=== PATIENT | female | born 1985 | race Asian ===

== ENCOUNTER 2019-06-13 12:55 | Emergency (ER) | payer MEDICAID ==
[~2019-06-13] VITALS: Ht 154.9 cm; Wt 65.5 kg
[~2019-06-13 12:55] MED LIST: DESO1TAB; HYDR1TAB PO; NAPR-56 PO; ONDA4TAB59 PO; PANT20TA2 PO; PREN1COM PO
[2019-06-13 13:09] VITALS: BP 126/93
[2019-06-13] MEDS ORDERED: PENI500T2 PO (13:13)
== END 2019-06-13 13:18 | disposition home or self-care (01) ==
LOC: ER 12:55
DX: J02.9 Acute pharyngitis, unspecified (principal); F17.200 Nicotine dependence, unspecified, uncomplicated; Z91.030 Bee allergy status; Z88.8 Allergy status to other drugs, medicaments and biological substances; Z88.1 Allergy status to other antibiotic agents; Z79.899 Other long term (current) drug therapy
CPT/HCPCS: 99283

== ENCOUNTER 2019-06-21 01:17 | Emergency (ER) | payer MEDICAID ==
[~2019-06-21] VITALS: Ht 154.9 cm; Wt 64.1 kg
[~2019-06-21 01:17] MED LIST changes: +PENI500T2 PO
[2019-06-21 01:27] VITALS: BP 140/94
[2019-06-21] MEDS ORDERED: CefTRIAXone 1000mg IM Kit (w/lidocaine diluent) IM ONE (01:40)
[2019-06-21] MEDS ORDERED: azithromycin 250mg tablet PO ONE (01:40)
[2019-06-21 01:57] LABS: URINE HCG NEGATIVE (NEG)
[2019-06-21 02:00] LABS: CLARITY,URINE CLEAR (Clear); COLOR,URINE YELLOW (Yellow); GLUCOSE, URINE NEGATIVE (Neg); KETONES,URINE NEGATIVE (Neg); LEUKOCYTE ESTERASE ,URINE NEGATIVE (Neg); NITRITES, URINE NEGATIVE (Neg); OCCULT BLOOD,URINE LARGE (Neg); PH,URINE 5.5 (4.8-8.0); PROTEIN,URINE NEGATIVE (Neg); UROBILINOGEN,URINE 0.2 E.U/dL (0.2-1.0)
[2019-06-21] MEDS ORDERED: ACYC400T PO (02:01)
[2019-06-21 02:04] LABS: UA COLLECTION TYPE VOIDED
[2019-06-21 02:05] LABS: BACTERIA,URINE NONE SEEN /HPF (Neg); RBC,URINE 0-2 /HPF (0-2); SQUAMOUS EPITHELIAL CELL,UR FEW /LPF (FEW); WBC,URINE NONE SEEN /HPF (0-4)
== END 2019-06-21 02:15 | disposition home or self-care (01) ==
LOC: ER 01:18
DX: B00.9 Herpesviral infection, unspecified (principal); A64 Unspecified sexually transmitted disease; F10.99 Alcohol use, unspecified with unspecified alcohol-induced disorder; Z91.030 Bee allergy status; Z88.8 Allergy status to other drugs, medicaments and biological substances; Z88.2 Allergy status to sulfonamides; Z79.899 Other long term (current) drug therapy; Y90.9 Presence of alcohol in blood, level not specified
CPT/HCPCS: 36415; 81001; 81025; 87491; 87591; 96372; 99283; J0696

== ENCOUNTER 2020-02-03 06:34 | Emergency (ER) | payer MEDICAID, OTHER ==
[~2020-02-03] VITALS: Ht 154.9 cm; Wt 65.9 kg
[~2020-02-03 06:34] MED LIST changes: -PENI500T2 PO
[2020-02-03 06:40] VITALS: BP 126/65
[2020-02-03] MEDS ORDERED: ketorolac trometh inj. 60 MG/2 ML VIAL IM ONE (06:55)
--- NOTE | 2020-02-03 07:01 | NUR ---
SAW PATIENT AND ORDERED TORDOL IM, MED ADMINISTERED WILL RE-EVALUATE PAIN AFTER INJECTION, PATINET TOLERATED WELL
--- NOTE | 2020-02-03 07:26 | NUR ---
reassesed patient pain still at 8/10, provider made aware and will reassess patient, patient was sittingon edge of bed patient encouraged to laydown
[2020-02-03] MEDS ORDERED: DICL50TA8 PO (07:40)
[2020-02-03] MEDS ORDERED: CYCL-1 PO (07:40)
--- NOTE | 2020-02-03 07:43 | NUR ---
patients pain is 2-3/10 after laying down for 20 min, provider assessed patient for weakness and this has resolved, patient ready for discharge
[2020-02-03] MEDS ORDERED: HYDR-4383 PO (10:35)
== END 2020-02-03 07:54 | disposition home or self-care (01) ==
LOC: ER 06:35
DX: S39.012A Strain of muscle, fascia and tendon of lower back, initial encounter (principal); F17.210 Nicotine dependence, cigarettes, uncomplicated; Z91.030 Bee allergy status; Z88.2 Allergy status to sulfonamides; Z88.8 Allergy status to other drugs, medicaments and biological substances; Z79.899 Other long term (current) drug therapy; X58.XXXA Exposure to other specified factors, initial encounter; Y93.F1 Activity, caregiving, bathing; Y92.89 Other specified places as the place of occurrence of the external cause; Y99.8 Other external cause status
CPT/HCPCS: 96372; 99283; J1885

== ENCOUNTER 2020-02-03 08:42 | Emergency (ER) | payer OTHER ==
[~2020-02-03] VITALS: Ht 154.9 cm; Wt 65.9 kg
[~2020-02-03 08:42] MED LIST changes: +CYCL-1 PO; +DICL50TA8 PO
[2020-02-03] MEDS ORDERED: morphine 4 MG/ML inj SYRINge IM ONE (09:00)
--- NOTE | 2020-02-03 09:15 | NUR ---
MRI SCREENING FORM FILLED OUT AND FAXED, MORPHINE IM GIVEN
[2020-02-03] MEDS ORDERED: ibuprofen tablet 400 MG TABLET PO ONE (09:20)
--- NOTE | 2020-02-03 10:08 | NUR ---
BACK FROM MRI, PAIN IS 1/10
[2020-02-03] MEDS ORDERED: HYDR-4383 PO (10:35)
--- NOTE | 2020-02-03 10:40 | NUR ---
provider went over MRI results, will write rx then discharge patient, pain is /10
[2020-02-03 10:53] VITALS: BP 130/92
== END 2020-02-03 10:56 | disposition home or self-care (01) ==
LOC: ER 08:42
DX: S39.012A Strain of muscle, fascia and tendon of lower back, initial encounter (principal); Z91.030 Bee allergy status; Z88.8 Allergy status to other drugs, medicaments and biological substances; Z79.899 Other long term (current) drug therapy; W18.2XXA Fall in (into) shower or empty bathtub, initial encounter; Y93.89 Activity, other specified; Y92.89 Other specified places as the place of occurrence of the external cause; Y99.8 Other external cause status
CPT/HCPCS: 72148; 96372; 99284; J2270

== ENCOUNTER 2021-02-26 20:42 | Emergency (ER) | payer MEDICAID, OTHER ==
[~2021-02-26] VITALS: Ht 152.4 cm; Wt 68.6 kg
[~2021-02-26 20:42] MED LIST changes: +HYDR-4383 PO
[2021-02-26 20:49] VITALS: BP 135/91
== END 2021-02-26 21:06 | disposition home or self-care (01) ==
LOC: ER 20:43
DX: J02.8 Acute pharyngitis due to other specified organisms (principal); B97.89 Other viral agents as the cause of diseases classified elsewhere; Z72.89 Other problems related to lifestyle; Z91.030 Bee allergy status; Z88.8 Allergy status to other drugs, medicaments and biological substances; Z88.2 Allergy status to sulfonamides; Z79.899 Other long term (current) drug therapy
CPT/HCPCS: 99281

== ENCOUNTER 2023-05-28 15:02 | Emergency (ER) | payer MEDICAID ==
[~2023-05-28] VITALS: Ht 157.5 cm; Wt 64.5 kg
[2023-05-28 15:22] VITALS: BP 141/78; PULSE 74; RESP 18; TEMP 97.7; O2SAT 99
[2023-05-28 16:24] LABS: URINE HCG NEGATIVE (NEG)
[2023-05-28 16:28] LABS: COLOR,URINE STRAW (Yellow); GLUCOSE, URINE NEGATIVE (Neg); KETONES,URINE NEGATIVE (Neg); LEUKOCYTE ESTERASE ,URINE SMALL (Neg); NITRITES, URINE NEGATIVE (Neg); OCCULT BLOOD,URINE MODERATE (Neg); PROTEIN,URINE NEGATIVE (Neg); UROBILINOGEN,URINE 0.2 E.U/dL (0.2-1.0)
[2023-05-28 16:32] LABS: CLARITY,URINE SLIGHTLY CLOUDY (Clear); UA COLLECTION TYPE VOIDED
[2023-05-28 16:37] LABS: BACTERIA,URINE FEW /HPF (Neg); SQUAMOUS EPITHELIAL CELL,UR FEW /LPF (FEW)
[2023-05-28 16:38] LABS: WBC CLUMPS,URINE FEW /HPF (NEGATIVE)
[2023-05-28] MEDS ORDERED: cephalexin 500mg capsule PO ONE (17:05)
[2023-05-28] MEDS ORDERED: CEPH-585 PO (17:07)
== END 2023-05-28 17:34 | disposition home or self-care (01) ==
LOC: ER 15:02
DX: N39.0 Urinary tract infection, site not specified (principal); Z91.030 Bee allergy status; Z88.8 Allergy status to other drugs, medicaments and biological substances; Z88.2 Allergy status to sulfonamides; Z79.1 Long term (current) use of non-steroidal anti-inflammatories (NSAID); Z79.899 Other long term (current) drug therapy
CPT/HCPCS: 81001; 81025; 87077; 87088; 87186; 99283

== ENCOUNTER 2023-08-16 12:07 | Emergency (ER) | payer OTHER, MEDICAID ==
[~2023-08-16] VITALS: Ht 157.5 cm; Wt 57.2 kg
[~2023-08-16 12:07] MED LIST changes: +CEPH-585 PO
[2023-08-16] MEDS ORDERED: NAPR-56 PO (13:56)
[2023-08-16 13:57] LABS: BILIRUBIN,URINE NEGATIVE (Neg); CLARITY,URINE SLIGHTLY CLOUDY (Clear); COLOR,URINE YELLOW (Yellow); GLUCOSE, URINE NEGATIVE (Neg); KETONES,URINE NEGATIVE (Neg); LEUKOCYTE ESTERASE ,URINE NEGATIVE (Neg); NITRITES, URINE NEGATIVE (Neg); OCCULT BLOOD,URINE LARGE (Neg); PH,URINE 6.5 (4.8-8.0); PROTEIN,URINE NEGATIVE (Neg); UROBILINOGEN,URINE 0.2 E.U/dL (0.2-1.0)
[2023-08-16 14:00] LABS: UA COLLECTION TYPE CLN CATCH MIDSTREAM
[2023-08-16 14:07] VITALS: BP 122/84; PULSE 71; RESP 16; TEMP 98.1; O2SAT 95
[2023-08-16 14:12] LABS: RBC,URINE 20-50 /HPF (0-2); WBC,URINE 0-4 /HPF (0-4)
[2023-08-16 14:13] LABS: BACTERIA,URINE FEW /HPF (Neg); MUCUS STRANDS FEW /LPF (Neg); SQUAMOUS EPITHELIAL CELL,UR MANY /LPF (FEW)
== END 2023-08-16 14:08 | disposition home or self-care (01) ==
LOC: ER 12:08
DX: S70.01XA Contusion of right hip, initial encounter (principal); K59.00 Constipation, unspecified; K80.20 Calculus of gallbladder without cholecystitis without obstruction; Z91.030 Bee allergy status; Z88.2 Allergy status to sulfonamides; Z88.8 Allergy status to other drugs, medicaments and biological substances; Z79.2 Long term (current) use of antibiotics; Z79.899 Other long term (current) drug therapy; V09.9XXA Pedestrian injured in unspecified transport accident, initial encounter; Y93.89 Activity, other specified; Y92.89 Other specified places as the place of occurrence of the external cause; Y99.8 Other external cause status
CPT/HCPCS: 73502; 74176; 81001; 99284

== ENCOUNTER 2023-08-18 14:16 | Emergency (ER) | payer OTHER, MEDICAID ==
[~2023-08-18] VITALS: Ht 157.5 cm; Wt 64.0 kg
[2023-08-18 15:37] VITALS: BP 126/81; O2SAT 96
[2023-08-18] MEDS ORDERED: ketorolac tromethamine 15mg/ml inj. IM ONE (16:45)
[2023-08-18] MEDS ORDERED: orphenadrine citrate 60mg/2ml inj. IM ONE (16:45)
[2023-08-18] MEDS ORDERED: PRED20TA PO (17:27)
[2023-08-18] MEDS ORDERED: CYCL-1 PO (17:27)
[2023-08-18 17:37] VITALS: PULSE 63; RESP 16; TEMP 97.4
== END 2023-08-18 17:46 | disposition home or self-care (01) ==
LOC: ER 14:17
DX: S16.1XXA Strain of muscle, fascia and tendon at neck level, initial encounter (principal); M54.50 Low back pain, unspecified; M25.551 Pain in right hip; Z72.89 Other problems related to lifestyle; Z87.440 Personal history of urinary (tract) infections; Z79.899 Other long term (current) drug therapy; Z88.8 Allergy status to other drugs, medicaments and biological substances; Z91.030 Bee allergy status; V89.2XXA Person injured in unspecified motor-vehicle accident, traffic, initial encounter; Y93.89 Activity, other specified; Y92.89 Other specified places as the place of occurrence of the external cause; Y99.8 Other external cause status
CPT/HCPCS: 71045; 72040; 96372; 99284; J1885; J2360

== ENCOUNTER 2023-09-06 05:08 | Emergency (ER) | payer OTHER, MEDICAID ==
[~2023-09-06] VITALS: Ht 157.5 cm; Wt 67.0 kg
[2023-09-06 05:10] VITALS: BP 139/80; PULSE 82; TEMP 98; O2SAT 100
[2023-09-06] MEDS ORDERED: diazepam 5mg tablet PO ONE (06:35)
[2023-09-06] MEDS ORDERED: ketorolac trometh. 30mg/ml inj. IM ONE (06:35)
[2023-09-06 06:50] VITALS: RESP 17
== END 2023-09-06 07:19 | disposition home or self-care (01) ==
LOC: ER 05:08
DX: M54.59 Other low back pain (principal); F41.9 Anxiety disorder, unspecified; Z87.448 Personal history of other diseases of urinary system; Z91.030 Bee allergy status; Z88.8 Allergy status to other drugs, medicaments and biological substances; Z79.899 Other long term (current) drug therapy
CPT/HCPCS: 96372; 99283; J1885

== ENCOUNTER 2023-10-12 21:50 | Inpatient (IN) | payer MEDICAID ==
[~2023-10-12] VITALS: Ht 154.9 cm; Wt 68.0 kg
[2023-10-12 22:08] LABS: HEMOGLOBIN 12.3 g/dl (12.0-16.0); MEAN PLATELET VOLUME 7.8 FL (7.4-10.4)
[2023-10-12 22:09] LABS: HEMATOCRIT 36.5 % (35.0-45.0); MEAN CORPUSCULAR HEMOGLOBIN 23.7 PG (27.0-31.0); MEAN CORPUSCULAR HGB CONC 33.8 g/dL (33.0-36.5); MEAN CORPUSCULAR VOLUME 70.2 FL (78-98); PLATELET COUNT 307 X10'3 (140-440); RED CELL DISTRIBUTION WIDTH 15.5 % (11.5-14.5); WHITE BLOOD COUNT 7.1 X10'3 (4.5-11.0)
[2023-10-12 22:27] LABS: ALANINE AMINOTRANSFERASE 160 U/L (12-78); ALBUMIN 3.7 G/DL (3.4-5.0); ALKALINE PHOSPHATASE 238 IU/L (46-116); ANION GAP 9 (8-16); BILIRUBIN,TOTAL 7.1 MG/DL (0.1-1.0); BLOOD UREA NITROGEN 5 MG/DL (7-18); BUN/CREATININE RATIO 7.4 (10.0-20.0); CALCIUM 8.9 MG/DL (8.5-10.1); CHLORIDE 100 MMOL/L (99-107); CREATININE 0.68 MG/DL (0.40-0.90); GLUCOSE 106 MG/DL (70-104); POTASSIUM 3.4 MMOL/L (3.5-5.1); SODIUM 135 MMOL/L (135-145); eCRCL 85 ML/MIN; eGFR > 90 ML/MIN
[2023-10-12 22:31] LABS: PRO BRAIN NATRIURETIC PEPTIDE 64 PG/ML (0-125)
[2023-10-12 22:36] LABS: LIPASE 32 U/L (16-77)
[2023-10-12 22:52] LABS: PLATELET ESTIMATE NORMAL; TOTAL CELLS COUNTED 100
[2023-10-12 22:53] LABS: ELLIPTOCYTES FEW; MICROCYTOSIS 1+; TARGET CELLS 1+
[2023-10-12 22:54] LABS: ACANTHOCYTES FEW; ANISOCYTOSIS 1+; ASPARTATE AMINO TRANSFERASE 213 U/L (10-37); POLYCHROMASIA FEW
[2023-10-12 22:55] LABS: SCHISTOCYTES FEW
[2023-10-12 22:57] LABS: TOTAL PROTEIN 7.4 G/DL (6.4-8.2)
[2023-10-13] MEDS ORDERED: morphine 4 MG/ML inj SYRINge IV ONE (00:15)
[2023-10-13] MEDS ORDERED: ondansetron/PF 4mg/2ml inj IV ONE (00:15)
[2023-10-13] MEDS ORDERED: normal saline 1000ml 1,000 ML IV ONE ×2 (00:15→03:35)
[2023-10-13] MEDS ORDERED: iohexol 300mg/ml 100ml inj. ONE (00:48)
[2023-10-13 01:41] LABS: BILIRUBIN,URINE MODERATE (Neg); CLARITY,URINE CLEAR (Clear); GLUCOSE, URINE NEGATIVE (Neg); KETONES,URINE TRACE mg/dl (Neg); LEUKOCYTE ESTERASE ,URINE NEGATIVE (Neg); NITRITES, URINE NEGATIVE (Neg); OCCULT BLOOD,URINE NEGATIVE (Neg); PROTEIN,URINE NEGATIVE (Neg)
[2023-10-13 01:43] LABS: URINE HCG NEGATIVE (NEG)
[2023-10-13 01:46] LABS: COLOR,URINE DARK YELLOW (Yellow); UA COLLECTION TYPE CLN CATCH MIDSTREAM
[2023-10-13] MEDS ORDERED: piperacillin/tazo 3.375gm/50ml 50 ML IV SCH (03:35)
[2023-10-13] MEDS ORDERED: ondansetron 4mg rapidly disintigrating tab PO PRN (04:15)
[2023-10-13] MEDS ORDERED: potassium Cl 20 mEq SR tablet PO PRN ×2 (04:15)
[2023-10-13] MEDS ORDERED: magnesium hydroxide 30ml (MOM) UD suspension PO PRN (04:15)
[2023-10-13] MEDS ORDERED: potassium Cl 40MEQ/1/2NS 520ml 520 ML IV PRN (04:15)
[2023-10-13] MEDS: potassium cl 20mEq in 1/2 NS 1,000 ML IV SCH ×2 (04:15→14:40)
[2023-10-13] MEDS ORDERED: bisacodyl 10mg suppository rectal RC PRN (04:15)
[2023-10-13] MEDS ORDERED: HYDROcodone/acetaminophen 5mg/325mg tablet PO PRN (04:15)
[2023-10-13] MEDS ORDERED: ondansetron/PF 4mg/2ml inj IV PRN (04:15)
[2023-10-13] MEDS ORDERED: mag hydrox/Alum hydrox/simeth 30ml oral suspension PO PRN (04:15)
[2023-10-13] MEDS ORDERED: metoclopramide 5 mg/ml inj IV PRN (04:15)
[2023-10-13] MEDS ORDERED: diphenhydrAMINE 50 mg/ml inj IV PRN (04:15)
[2023-10-13] MEDS ORDERED: morphine 2 MG/ML inj. syringe IV PRN (04:15)
[2023-10-13] MEDS ORDERED: acetaminophen 325mg tablet PO PRN ×2 (04:15)
[2023-10-13 04:46] LABS: HEMOGLOBIN A1C 4.4 % (4.5-6.2)
[2023-10-13 04:49] LABS: CREATINE KINASE 112 U/L (26-192); LACTATE DEHYDROGENASE 241 U/L (81-234); MAGNESIUM 2.1 MG/DL (1.5-2.4)
[2023-10-13 04:57] LABS: URINE AMPHETAMINE SCREEN NEGATIVE (Neg); URINE BARBITUATE SCREEN NEGATIVE (Neg); URINE BENZODIAZEPINES SCREEN POSITIVE (Neg); URINE CANNABINOID SCREEN NEGATIVE (Neg); URINE COCAINE SCREEN POSITIVE (Neg); URINE METHADONE SCREEN NEGATIVE (Neg); URINE OPIATE SCREEN POSITIVE (Neg); URINE PHENCYCLIDINE SCREEN NEGATIVE (Neg)
[2023-10-13 05:12] LABS: ETHANOL < 10 MG/DL (<10); PHOSPHORUS 3.1 MG/DL (2.3-4.5); THYROID STIMULATING HORMONE 1.51 ulU/ml (0.34-4.50)
[2023-10-13 05:14] LABS: ACETAMINOPHEN < 2.0 UG/ML (10-30)
[2023-10-13 07:45] LABS: APTT 28 SECONDS (22-32); PROTHROMBIN TIME 9.6 SECONDS (9.0-12.0)
[2023-10-13] MEDS: morphine 2 MG/ML inj. syringe IV PRN ×4 (07:45→21:37)
[2023-10-13] MEDS: docusate sod 100mg capsule PO SCH ×2 (07:45→19:18)
[2023-10-13] MEDS: pantoprazole 40MG/NS 100ML BAG 100 ML IV SCH (07:50)
[2023-10-13 08:04] LABS: INR 0.9 INR
[2023-10-13 08:30] VITALS: RESP 16; O2SAT 98
[2023-10-13 08:39] VITALS: BP 109/41; PULSE 55; RESP 16; TEMP 98.2; O2SAT 99
[2023-10-13] MEDS ORDERED: DIAZ10TA4 PO (08:58)
[2023-10-13 10:00] VITALS: BP 104/54; PULSE 57; RESP 15; TEMP 97.3; O2SAT 97
[2023-10-13] MEDS: piperacillin/tazo 3.375gm/50ml 50 ML IV SCH ×2 (14:41→21:37)
[2023-10-13 18:00] VITALS: BP 106/58; PULSE 55; RESP 15; TEMP 97; O2SAT 99
[2023-10-13 20:00] VITALS: RESP 15; O2SAT 99
[2023-10-13 20:13] LABS: ALANINE AMINOTRANSFERASE 122 U/L (12-78); ALBUMIN 3.3 G/DL (3.4-5.0); ALKALINE PHOSPHATASE 218 IU/L (46-116); ANION GAP 8 (8-16); ASPARTATE AMINO TRANSFERASE 99 U/L (10-37); BILIRUBIN,TOTAL 4.6 MG/DL (0.1-1.0); BLOOD UREA NITROGEN 3 MG/DL (7-18); BUN/CREATININE RATIO 4.1 (10.0-20.0); CALCIUM 8.8 MG/DL (8.5-10.1); CHLORIDE 103 MMOL/L (99-107); CREATININE 0.73 MG/DL (0.40-0.90); GLUCOSE 105 MG/DL (70-104); POTASSIUM 3.4 MMOL/L (3.5-5.1); SODIUM 137 MMOL/L (135-145); TOTAL CARBON DIOXIDE 26.2 MMOL/L (24-32); eCRCL 79 ML/MIN; eGFR 89 ML/MIN
[2023-10-13 20:23] LABS: ALBUMIN/GLOBULIN RATIO 0.9 (1.1-1.5); TOTAL PROTEIN 7.1 G/DL (6.4-8.2)
[2023-10-13] MEDS ORDERED: temazepam 15mg capsule PO PRN (21:00)
[2023-10-13 22:00] VITALS: BP 91/48; PULSE 63; RESP 16; TEMP 97.6; O2SAT 98
[2023-10-14] VITALS (13 sets, daily range): BP systolic 95–112; BP diastolic 48–72; PULSE 50–63; RESP 12–18; TEMP 97.2–98; O2SAT 97–99
[2023-10-14] MEDS: potassium cl 20mEq in 1/2 NS 1,000 ML IV SCH ×3 (00:01→20:35)
[2023-10-14] MEDS: morphine 2 MG/ML inj. syringe IV PRN ×3 (02:25→12:28)
[2023-10-14] MEDS: diphenhydrAMINE 25mg capsule PO PRN ×3 (02:25→22:04)
[2023-10-14] MEDS: piperacillin/tazo 3.375gm/50ml 50 ML IV SCH ×3 (05:29→22:05)
[2023-10-14 06:11] LABS: HEMOGLOBIN 11.5 g/dl (12.0-16.0); WHITE BLOOD COUNT 3.5 X10'3 (4.5-11.0)
[2023-10-14 06:13] LABS: HEMATOCRIT 34.3 % (35.0-45.0); MEAN CORPUSCULAR HEMOGLOBIN 23.5 PG (27.0-31.0); MEAN CORPUSCULAR HGB CONC 33.5 g/dL (33.0-36.5); MEAN CORPUSCULAR VOLUME 70.2 FL (78-98); MEAN PLATELET VOLUME 7.8 FL (7.4-10.4); PLATELET COUNT 242 X10'3 (140-440); RED BLOOD COUNT 4.88 X10'6 (4.20-5.60); RED CELL DISTRIBUTION WIDTH 15.4 % (11.5-14.5)
[2023-10-14 06:28] LABS: ALANINE AMINOTRANSFERASE 101 U/L (12-78); ALBUMIN/GLOBULIN RATIO 0.8 (1.1-1.5); ALKALINE PHOSPHATASE 205 IU/L (46-116); ANION GAP 6 (8-16); ASPARTATE AMINO TRANSFERASE 75 U/L (10-37); BILIRUBIN,TOTAL 2.1 MG/DL (0.1-1.0); BLOOD UREA NITROGEN 1 MG/DL (7-18); BUN/CREATININE RATIO 1.4 (10.0-20.0); CALCIUM 8.6 MG/DL (8.5-10.1); CHLORIDE 104 MMOL/L (99-107); CHOL/HDL RATIO 2.9 (0.00-4.99); CHOLESTEROL 179 MG/DL (0-200); CREATININE 0.69 MG/DL (0.40-0.90); GLUCOSE 89 MG/DL (70-104); HDL CHOLESTEROL 62 MG/DL (35-60); LDL CHOLESTEROL 81 MG/DL (50-100); POTASSIUM 4.2 MMOL/L (3.5-5.1); SODIUM 136 MMOL/L (135-145); TOTAL CARBON DIOXIDE 25.6 MMOL/L (24-32); TOTAL PROTEIN 6.6 G/DL (6.4-8.2); TRIGLYCERIDES 121 MG/DL (20-135); eCRCL 83 ML/MIN; eGFR > 90 ML/MIN
[2023-10-14 06:44] LABS: PLATELET ESTIMATE NORMAL; TOTAL CELLS COUNTED 100
[2023-10-14 06:45] LABS: ELLIPTOCYTES FEW; HYPOCHROMASIA 1+; MICROCYTOSIS 1+; TARGET CELLS 1+; TEAR DROP CELLS FEW
[2023-10-14] MEDS: pantoprazole 40MG/NS 100ML BAG 100 ML IV SCH (07:40)
[2023-10-14] MEDS: docusate sod 100mg capsule PO SCH ×2 (07:41→20:35)
[2023-10-14] MEDS ORDERED: LIDOcaine Viscous 15ml cup ONE (14:41)
[2023-10-14] MEDS ORDERED: glucagon, human recombinant 1mg kit ONE (14:41)
[2023-10-14] MEDS ORDERED: iohexol 300 MG/1 ML 50ml polymer ONE (14:41)
[2023-10-14] MEDS ORDERED: MIDAZolam 1 MG/ML 5ML VIAL ONE (14:41)
[2023-10-14] MEDS ORDERED: fentaNYL/PF 50MCG/1 ML 2ML syringe ONE (14:41)
[2023-10-14] MEDS ORDERED: iohexol 300mg/ml 100ml inj. ONE (14:42)
[2023-10-14] MEDS ORDERED: diphenhydrAMINE 50 mg/ml inj ONE (14:50)
[2023-10-14] MEDS: HYDROmorphone inj. 0.5 MG/0.5 ML DISP.SYRIN IV PRN (20:35)
[2023-10-15] VITALS (18 sets, daily range): BP systolic 114–145; BP diastolic 51–84; PULSE 52–71; RESP 12–20; TEMP 97.1–98.1; O2SAT 92–100
[2023-10-15] MEDS: potassium cl 20mEq in 1/2 NS 1,000 ML IV SCH ×2 (05:18→21:56)
[2023-10-15] MEDS: piperacillin/tazo 3.375gm/50ml 50 ML IV SCH ×3 (05:27→21:57)
[2023-10-15 07:32] LABS: RED CELL DISTRIBUTION WIDTH 15.8 % (11.5-14.5); WHITE BLOOD COUNT 4.4 X10'3 (4.5-11.0)
[2023-10-15 07:34] LABS: HEMATOCRIT 34.6 % (35.0-45.0); HEMOGLOBIN 11.6 g/dl (12.0-16.0); MEAN CORPUSCULAR HEMOGLOBIN 23.6 PG (27.0-31.0); MEAN CORPUSCULAR HGB CONC 33.6 g/dL (33.0-36.5); MEAN CORPUSCULAR VOLUME 70.2 FL (78-98); MEAN PLATELET VOLUME 8.1 FL (7.4-10.4); PLATELET COUNT 251 X10'3 (140-440); RED BLOOD COUNT 4.93 X10'6 (4.20-5.60)
[2023-10-15 07:40] LABS: ALANINE AMINOTRANSFERASE 87 U/L (12-78); ALBUMIN 3.2 G/DL (3.4-5.0); ALBUMIN/GLOBULIN RATIO 0.8 (1.1-1.5); ALKALINE PHOSPHATASE 207 IU/L (46-116); ANION GAP 8 (8-16); ASPARTATE AMINO TRANSFERASE 58 U/L (10-37); BILIRUBIN,TOTAL 1.8 MG/DL (0.1-1.0); BLOOD UREA NITROGEN 2 MG/DL (7-18); BUN/CREATININE RATIO 2.9 (10.0-20.0); CALCIUM 8.8 MG/DL (8.5-10.1); CHLORIDE 104 MMOL/L (99-107); CREATININE 0.68 MG/DL (0.40-0.90); GLUCOSE 95 MG/DL (70-104); POTASSIUM 3.9 MMOL/L (3.5-5.1); SODIUM 138 MMOL/L (135-145); TOTAL CARBON DIOXIDE 26.3 MMOL/L (24-32); eCRCL 85 ML/MIN; eGFR > 90 ML/MIN
[2023-10-15] MEDS: pantoprazole 40MG/NS 100ML BAG 100 ML IV SCH (07:55)
[2023-10-15] MEDS: docusate sod 100mg capsule PO SCH ×2 (07:56→21:56)
[2023-10-15 08:05] LABS: TOTAL CELLS COUNTED 100
[2023-10-15 08:06] LABS: HYPOCHROMASIA 1+; MICROCYTOSIS 1+; PLATELET ESTIMATE NORMAL; TARGET CELLS 2+
[2023-10-15 08:07] LABS: ELLIPTOCYTES FEW; TEAR DROP CELLS FEW
[2023-10-15] MEDS: diphenhydrAMINE 25mg capsule PO PRN ×2 (08:07→21:57)
[2023-10-15] MEDS: HYDROmorphone inj. 0.5 MG/0.5 ML DISP.SYRIN IV PRN (12:25)
[2023-10-15] MEDS ORDERED: labetalol 20mg/4ml (5mg/ml) syringe IV PRN (14:30)
[2023-10-15] MEDS ORDERED: BUPIVAcaine 2.5mg/ml inj 50ml vial (contains preservative) ONE (14:30)
[2023-10-15] MEDS ORDERED: LIDOcaine 1% (10mg/ml)w/preservative inj. 20ml MDV ONE (14:30)
[2023-10-15] MEDS ORDERED: meperidine/PF 25mg/ml syringe IV PRN ×2 (14:30)
[2023-10-15] MEDS ORDERED: morphine 4 MG/ML inj SYRINge IV PRN (14:30)
[2023-10-15] MEDS ORDERED: morphine 2 MG/ML inj. syringe IV PRN (14:30)
[2023-10-15] MEDS ORDERED: enalaprilat dihydrate 2.5mg/2ml vial IV PRN (14:30)
[2023-10-15] MEDS ORDERED: ondansetron/PF 4mg/2ml inj IV PRN (14:30)
[2023-10-15] MEDS ORDERED: ringers solution, lacted 1,000 ML IV SCH (14:30)
[2023-10-15] MEDS ORDERED: INDOCYANINE GREEN 25 MG/10 ML VIAL IV ONE ×3 (16:48→16:52)
[2023-10-15] MEDS ORDERED: LIDOcaine 1%/PF 5ML 10 MG/ML VIAL ONE (17:32)
[2023-10-15] MEDS ORDERED: propofol inj 20 ML IV ONE (17:32)
[2023-10-15] MEDS ORDERED: midazolam 1 mg/ML 2ml injection ONE (17:33)
[2023-10-15] MEDS ORDERED: fentaNYL/PF 50MCG/1 ML 2ML syringe ONE (17:33)
[2023-10-15] MEDS ORDERED: LIDOcaine 1% 30ml preserv. free vial ONE (17:53)
[2023-10-15] MEDS ORDERED: rocuronium 10mg/ml inj IV ONE (18:05)
[2023-10-15] MEDS ORDERED: sevoflurane 250ml liquid IH ONE (18:05)
[2023-10-15] MEDS ORDERED: neostigmine methylsulfate 1 MG/ML 10ml vial ONE (18:05)
[2023-10-15] MEDS ORDERED: ondansetron/PF 4mg/2ml inj ONE (18:05)
[2023-10-15] MEDS ORDERED: dexamethasone sod phosphate 10mg/ml inj ONE (18:05)
[2023-10-15] MEDS ORDERED: glycopyrrolate 0.2mg/ml inj ONE (18:05)
[2023-10-15] MEDS ORDERED: LIDOcaine 1% 30ml preserv. free vial IJ ONE (18:20)
[2023-10-15] MEDS ORDERED: BUPIVAcaine/PF 2.5 mg/ml (0.25%) 30ml vial IJ ONE (18:20)
[2023-10-15] MEDS ORDERED: ceFAZolin 1000mg inj ONE ×2 (18:35→18:36)
[2023-10-15] MEDS ORDERED: meperidine/PF 25mg/ml syringe ONE (18:37)
[2023-10-15] MEDS ORDERED: naloxone 0.4 mg/ml inj IV PRN (19:35)
[2023-10-15] MEDS ORDERED: HYDROcodone/acetaminophen 5mg/325mg tablet PO PRN (19:35)
[2023-10-15] MEDS ORDERED: HYDROcodone/acetaminophen 10/325mg tab PO PRN (19:35)
[2023-10-15] MEDS ORDERED: acetaminophen 1,000mg/100ml IV 100 ML IV ONE (19:40)
[2023-10-15] MEDS: meperidine/PF 25mg/ml syringe IV PRN ×3 (20:02→20:25)
[2023-10-16 00:20] VITALS: BP 107/59; PULSE 58; O2SAT 97
[2023-10-16] MEDS: HYDROmorphone inj. 0.5 MG/0.5 ML DISP.SYRIN IV PRN ×2 (00:24→10:25)
[2023-10-16 02:00] VITALS: BP 100/60; PULSE 55; RESP 16; TEMP 97.3; O2SAT 96
[2023-10-16] MEDS: potassium cl 20mEq in 1/2 NS 1,000 ML IV SCH ×2 (02:15→10:31)
[2023-10-16] MEDS: piperacillin/tazo 3.375gm/50ml 50 ML IV SCH (05:37)
[2023-10-16] MEDS: HYDROcodone/acetaminophen 10/325mg tab PO PRN ×2 (05:45→16:21)
[2023-10-16 06:00] VITALS: BP 101/58; PULSE 61; RESP 16; TEMP 97.3; O2SAT 100
[2023-10-16 07:24] LABS: MEAN PLATELET VOLUME 8.1 FL (7.4-10.4)
[2023-10-16 07:27] LABS: HEMATOCRIT 32.8 % (35.0-45.0); MEAN CORPUSCULAR HEMOGLOBIN 23.7 PG (27.0-31.0); MEAN CORPUSCULAR HGB CONC 33.6 g/dL (33.0-36.5); MEAN CORPUSCULAR VOLUME 70.5 FL (78-98); PLATELET COUNT 253 X10'3 (140-440); RED BLOOD COUNT 4.65 X10'6 (4.20-5.60); RED CELL DISTRIBUTION WIDTH 15.4 % (11.5-14.5); WHITE BLOOD COUNT 6.7 X10'3 (4.5-11.0)
[2023-10-16] MEDS ORDERED: pantoprazole 40mg Tablet.DR PO SCH (07:30)
[2023-10-16 07:42] LABS: ALANINE AMINOTRANSFERASE 92 U/L (12-78); ALBUMIN/GLOBULIN RATIO 0.8 (1.1-1.5); ALKALINE PHOSPHATASE 166 IU/L (46-116); ANION GAP 8 (8-16); ASPARTATE AMINO TRANSFERASE 94 U/L (10-37); BLOOD UREA NITROGEN 2 MG/DL (7-18); BUN/CREATININE RATIO 2.7 (10.0-20.0); CALCIUM 8.6 MG/DL (8.5-10.1); CHLORIDE 104 MMOL/L (99-107); CREATININE 0.73 MG/DL (0.40-0.90); GLUCOSE 141 MG/DL (70-104); SODIUM 138 MMOL/L (135-145); TOTAL CARBON DIOXIDE 26.2 MMOL/L (24-32); TOTAL PROTEIN 6.7 G/DL (6.4-8.2); eCRCL 79 ML/MIN; eGFR 89 ML/MIN
[2023-10-16 08:02] LABS: PLATELET ESTIMATE NORMAL; TOTAL CELLS COUNTED 100
[2023-10-16 08:03] LABS: ANISOCYTOSIS FEW; HYPOCHROMASIA 2+; MICROCYTOSIS 1+; POIKILOCYTOSIS FEW; TARGET CELLS 1+
[2023-10-16] MEDS: docusate sod 100mg capsule PO SCH (08:11)
[2023-10-16 08:18] VITALS: RESP 18
[2023-10-16 10:00] VITALS: BP 110/60; PULSE 60; RESP 16; TEMP 97.9; O2SAT 99
[2023-10-16 16:21] VITALS: RESP 16
== END 2023-10-16 16:25 | disposition home or self-care (01) | DRG 263 ==
LOC: ER 21:51 → ED HOLD 10-13 04:18 → ORTHO 4S 10-13 07:45
PROVIDERS: ADMIT Family Medicine; ATTEND Internal Medicine
PROC: BW211ZZ Computerized Tomography (CT Scan) of Abdomen and Pelvis using Low Osmolar Contrast (ICD-10-PCS; 2023-10-13)
PROC: 0FC98ZZ Extirpation of Matter from Common Bile Duct, Via Natural or Artificial Opening Endoscopic (ICD-10-PCS; 2023-10-14)
PROC: BF532Z0 Other Imaging of Gallbladder and Bile Ducts using Fluorescing Agent, Intraoperative (ICD-10-PCS; 2023-10-15)
PROC: 8E0W4CZ Robotic Assisted Procedure of Trunk Region, Percutaneous Endoscopic Approach (ICD-10-PCS; 2023-10-15)
PROC: 0FT44ZZ Resection of Gallbladder, Percutaneous Endoscopic Approach (ICD-10-PCS; principal; 2023-10-15 18:05)
DX: K80.67 Calculus of gallbladder and bile duct with acute and chronic cholecystitis with obstruction (principal); B17.9 Acute viral hepatitis, unspecified; E86.0 Dehydration; G89.4 Chronic pain syndrome; F14.10 Cocaine abuse, uncomplicated; I10 Essential (primary) hypertension; E87.6 Hypokalemia; K44.9 Diaphragmatic hernia without obstruction or gangrene; K21.9 Gastro-esophageal reflux disease without esophagitis; Z87.891 Personal history of nicotine dependence; Z79.891 Long term (current) use of opiate analgesic; Z88.8 Allergy status to other drugs, medicaments and biological substances; Z91.030 Bee allergy status
CPT/HCPCS: 36415; 43262; 43264; 71045; 74177; 74181; 76700; 80053; 80061; 80305; 80320; 80329; 81003; 81025; 82550; 83036; 83605; 83615; 83690; 83735; 83880; 84100; 84443; 84484; 85007; 85025; 85610; 85651; 85730; 86140; 87040; 87081; 99152; 99153; 99285; A4215; A4615; A4618; A4620; A7000; C1769; C9113; G0378; J0690; J1100; J1170; J1200; J1610; J2175; J2250; J2270; J2405; J2543; J2704; J2710; J3010; J3480; J3490; J7030; J7040; J7120; Q0163; Q9967

== ENCOUNTER 2023-11-21 12:39 | Outpatient (CLI) | payer MEDICAID ==
[~2023-11-21 12:39] MED LIST changes: -CEPH-585 PO; -CYCL-1 PO; -DESO1TAB; +DIAZ10TA4 PO; -DICL50TA8 PO; -HYDR-4383 PO; -HYDR1TAB PO; -NAPR-56 PO; -ONDA4TAB59 PO; -PANT20TA2 PO; -PREN1COM PO
== END 2023-11-21 23:59 | disposition home or self-care (01) ==
LOC: RAD 12:39
PROVIDERS: ATTEND Registered Nurse
DX: M48.07 Spinal stenosis, lumbosacral region (principal); M89.312 Hypertrophy of bone, left shoulder; M46.1 Sacroiliitis, not elsewhere classified; M75.22 Bicipital tendinitis, left shoulder; N88.8 Other specified noninflammatory disorders of cervix uteri; M25.512 Pain in left shoulder
CPT/HCPCS: 72148; 73221